=== PATIENT | female | born 1960 | race Caucasian/White ===

== ENCOUNTER → 2016-06-14 | Outpatient (CLI) | payer OTHER ==
[~2016-06-14] MED LIST: CARAFATE1 G1 PO; CITALOPRAM40 MG PO; COMBIVENT1 AR1 INH; FOSAMAX70 MG PO; Flovent 44 Mcg44 MCG INH; IBUPROFEN 30 M800 MG PO; MOTRIN800 MG PO; NATURE'S BLEND F1 MG PO; NORFLEX100 MG PO; ORPHENADRINE100 MG PO; OYSTER SHELL C500 M2 PO; PRILOSEC20 MG PO; PROTONIX40 MG PO; REQUIP1 MG PO; SERTRALINE25 MG PO; SINGULAIR10 MG PO; ULTRAM50 MG PO; VIBRAMYCIN100 MG PO; VITAMIN D50000 I3 PO; ZOFRAN ODT4 MG PO; ZYRTEC10 MG PO
== END | disposition home or self-care (01) ==
LOC: US 10:00
DX: L98.9 Disorder of the skin and subcutaneous tissue, unspecified (principal)

== ENCOUNTER → 2018-04-03 | Outpatient (CLI) | payer OTHER | END | disposition home or self-care (01) | LOC: MAMMO 14:28 | DX: Z12.31 Encounter for screening mammogram for malignant neoplasm of breast (principal) ==

== ENCOUNTER → 2018-06-21 | Outpatient (CLI) | payer OTHER | END | disposition home or self-care (01) | LOC: RAD 10:24 | DX: M25.511 Pain in right shoulder (principal) ==

== ENCOUNTER → 2018-09-26 | Outpatient (CLI) | payer OTHER ==
[~2018-09-26] MED LIST changes: +CLINDAMYCIN HC300 MG PO
--- NOTE | ~2018-09-26 | PF ---
[place], [place] PULMONARY FUNCTION TEST [id number] UNIT #: [id number] ROOM: DOCTOR: STEF ROJAS MD,KERRI BIRTHDATE: [birth year] DOS: 09/26/2018 ORDERED BY: The test was ordered by Dr. Lor Schulz. HISTORY: The patient is a 58-year-old female, height of 64 inches, weight 180 pounds. Diagnosis of COPD reported. The patient reported symptoms of shortness of breath with exertion, nonproductive cough, frequent wheezing. Active tobacco use 1 pack of cigarettes a day was also recorded. SPIROMETRY: The FVC 2.46 liters, 75% predicted value. FEV1 was 1.94 liters, 75% predicted value. Ratio of FEV1/FVC 79%. No changes of significant improvement noted post-bronchodilator. Flow volume loop was noted of obstructive airway pattern. LUNG VOLUMES: Thoracic gas volume recorded 100%, residual volume 130%, total lung capacity 101%. RV/TLC ratio 137%. The patient lung diffusion recorded 84%. IMPRESSION: Abnormal airway resistance and passive conductance noted. FINAL IMPRESSION: Current test was noted consistent with diagnosis of bronchial asthma. KERRI FINCH MD CM:PFREPORT:PULMONARY FUNCTION TEST [id number] KERRI ROJAS MD
== END | disposition home or self-care (01) ==
LOC: CP 11:58
DX: J44.9 Chronic obstructive pulmonary disease, unspecified (principal)

== ENCOUNTER → 2018-10-29 | Outpatient (CLI) | payer OTHER | END | disposition home or self-care (01) | LOC: MRI 08:35 | DX: M19.011 Primary osteoarthritis, right shoulder (principal); M75.91 Shoulder lesion, unspecified, right shoulder ==

== ENCOUNTER 2018-12-20 15:51 | Emergency (ER) | payer OTHER ==
[~2018-12-20] VITALS: Ht 162.5 cm; Wt 77.1 kg
[~2018-12-20 15:51] MED LIST changes: -CLINDAMYCIN HC300 MG PO
[2018-12-20 17:43] LABS: BASO # 0.1 10*3/uL (0.0-0.1); BASO % 0.5 % (0.0-1.0); EOS # 0.1 10*3/uL (0.0-0.4); EOS % 0.8 % (1.0-4.0); HEMATOCRIT 41.4 % (37.0-47.0); HEMOGLOBIN 13.5 g/dl (12.0-16.0); LYMPH # 2.2 10*3/uL (1.3-4.4); LYMPH % 15.8 % (27.0-41.0); MEAN CELL VOLUME 91.6 fl (81.0-99.0); MEAN CORPUSCULAR HGB 29.9 pg (27.0-31.0); MEAN CORPUSCULAR HGB CONC 32.6 g/dl (33.0-37.0); MEAN PLATELET VOLUME 10.2 fl (9.6-12.3); NEUT # 10.6 10*3/uL (2.3-7.9); NEUT % 75.5 % (47.0-73.0); PLATELET COUNT AUTOMATED 341 10*3/uL (130-400); RED BLOOD COUNT 4.52 10*6/uL (4.10-5.10); RED CELL DISTRI WIDTH 14.4 % (0-14.5)
[2018-12-20 17:59] LABS: ALBUMIN 3.9 gm/dl (3.1-4.5); ALKALINE PHOSPHATASE 85 U/L (45-117); BUN 12 mg/dl (7-24); CHLORIDE 106 mmol/L (98-107); CREATININE 0.91 mg/dL (0.55-1.02); POTASSIUM 3.7 mmol/L (3.5-5.1); SGOT/AST 18 IU/L (3-35); SGPT/ALT 19 U/L (12-78); SODIUM 139 mmol/L (136-145); TOTAL PROTEIN 8.3 gm/dL (6.4-8.2)
[2018-12-20 22:02] VITALS: BP 146/63
[2018-12-21] MEDS ORDERED: CLINDAMYCIN HC300 MG PO (10:09)
== END 2018-12-20 22:49 | disposition home or self-care (01) ==
LOC: ED 15:51
PROVIDERS: Emergency Medicine
DX: K11.20 Sialoadenitis, unspecified (principal); Z88.1 Allergy status to other antibiotic agents; Z88.8 Allergy status to other drugs, medicaments and biological substances; Z88.5 Allergy status to narcotic agent; Z79.899 Other long term (current) drug therapy

== ENCOUNTER 2019-04-26 19:46 | Emergency (ER) | payer OTHER ==
[~2019-04-26] VITALS: Ht 162.5 cm; Wt 74.8 kg
[2019-04-26 19:46] VITALS: BP 146/76
[~2019-04-26 19:46] MED LIST changes: +CLINDAMYCIN HC300 MG PO
== END 2019-04-26 21:54 | disposition home or self-care (01) ==
LOC: ED 19:46
DX: S61.210A Laceration without foreign body of right index finger without damage to nail, initial encounter (principal); J45.909 Unspecified asthma, uncomplicated; J44.9 Chronic obstructive pulmonary disease, unspecified; W45.8XXA Other foreign body or object entering through skin, initial encounter; F17.200 Nicotine dependence, unspecified, uncomplicated; Z88.1 Allergy status to other antibiotic agents; Z88.6 Allergy status to analgesic agent; Z88.8 Allergy status to other drugs, medicaments and biological substances; Z79.899 Other long term (current) drug therapy; Y93.89 Activity, other specified; Y92.89 Other specified places as the place of occurrence of the external cause; Y99.8 Other external cause status

== ENCOUNTER → 2020-04-15 | Outpatient (CLI) | payer OTHER | END | disposition home or self-care (01) | LOC: MAMMO 05:01 | PROVIDERS: ATTEND Family Medicine | DX: Z12.31 Encounter for screening mammogram for malignant neoplasm of breast (principal) ==

== ENCOUNTER 2021-02-13 13:21 | Emergency (ER) | payer OTHER ==
[~2021-02-13] VITALS: Ht 162.5 cm; Wt 74.8 kg
[2021-02-13 14:01] VITALS: BP 160/90
[2021-02-16] MEDS ORDERED: LANSOPRAZOLE30 MG PO (13:49)
[2021-02-18] MEDS ORDERED: HYDROCODONE-AC1 EAC1 PO (09:00)
== END 2021-02-13 19:01 | disposition home or self-care (01) ==
LOC: ED 13:21
DX: S52.592A Other fractures of lower end of left radius, initial encounter for closed fracture (principal); Z88.1 Allergy status to other antibiotic agents; Z88.8 Allergy status to other drugs, medicaments and biological substances; Z79.899 Other long term (current) drug therapy; W01.0XXA Fall on same level from slipping, tripping and stumbling without subsequent striking against object, initial encounter; Y93.89 Activity, other specified; Y92.89 Other specified places as the place of occurrence of the external cause; Y99.8 Other external cause status

== ENCOUNTER → 2021-02-18 | Day surgery (SDC) | payer OTHER ==
[2021-02-17 12:43] LABS: BUN 14 mg/dl (7-24); CHLORIDE 108 mmol/L (98-107); CREATININE 0.67 mg/dL (0.55-1.02); POTASSIUM 3.6 mmol/L (3.5-5.1); SODIUM 141 mmol/L (136-145)
[~2021-02-18] VITALS: Ht 162.5 cm; Wt 78.9 kg
[~2021-02-18] MED LIST changes: +HYDROCODONE-AC1 EAC1 PO; +LANSOPRAZOLE30 MG PO
[2021-02-18 07:03] VITALS: BP 151/70
[2021-02-18 09:10] VITALS: BP 154/74
[2021-02-18 09:25] VITALS: BP 126/57
[2021-02-18 09:36] VITALS: BP 108/54
[2021-02-18 09:55] VITALS: BP 112/58
[2021-02-18 10:10] VITALS: BP 113/50
== END | disposition home or self-care (01) ==
LOC: LAB 02-16 13:13 → EDSTATUS 02-16 13:22 → SDC 02:24
PROVIDERS: ATTEND Orthopaedic Surgery
DX: S52.572A Other intraarticular fracture of lower end of left radius, initial encounter for closed fracture (principal); K21.9 Gastro-esophageal reflux disease without esophagitis; J45.909 Unspecified asthma, uncomplicated; F17.210 Nicotine dependence, cigarettes, uncomplicated; X50.0XXA Overexertion from strenuous movement or load, initial encounter; X50.9XXA Other and unspecified overexertion or strenuous movements or postures, initial encounter; Y93.89 Activity, other specified; Y92.89 Other specified places as the place of occurrence of the external cause; Y99.8 Other external cause status; Z20.822 Contact with and (suspected) exposure to COVID-19

== ENCOUNTER → 2021-03-03 | Outpatient (CLI) | payer OTHER | END | disposition home or self-care (01) | LOC: ORTHO 08:58 | PROVIDERS: ATTEND Nurse Practitioner | DX: S52.612A Displaced fracture of left ulna styloid process, initial encounter for closed fracture (principal); X58.XXXA Exposure to other specified factors, initial encounter ==

== ENCOUNTER → 2021-03-24 | Outpatient (CLI) | payer OTHER | END | disposition home or self-care (01) | LOC: ORTHO 02:29 | PROVIDERS: ATTEND Orthopaedic Surgery | DX: S52.612A Displaced fracture of left ulna styloid process, initial encounter for closed fracture (principal); M79.89 Other specified soft tissue disorders; X58.XXXA Exposure to other specified factors, initial encounter; Y93.89 Activity, other specified; Y92.89 Other specified places as the place of occurrence of the external cause; Y99.8 Other external cause status ==

== ENCOUNTER → 2021-04-21 | Outpatient (CLI) | payer OTHER | END | disposition home or self-care (01) | LOC: ORTHO 10:42 | PROVIDERS: ATTEND Orthopaedic Surgery | DX: S52.572D Other intraarticular fracture of lower end of left radius, subsequent encounter for closed fracture with routine healing (principal); T81.41XA Infection following a procedure, superficial incisional surgical site, initial encounter; X58.XXXD Exposure to other specified factors, subsequent encounter ==

== ENCOUNTER → 2021-05-05 | Outpatient (CLI) | payer OTHER | END | disposition home or self-care (01) | LOC: ORTHO 00:15 | PROVIDERS: ATTEND Orthopaedic Surgery | DX: S52.612D Displaced fracture of left ulna styloid process, subsequent encounter for closed fracture with routine healing (principal); S52.572D Other intraarticular fracture of lower end of left radius, subsequent encounter for closed fracture with routine healing; X58.XXXD Exposure to other specified factors, subsequent encounter ==

== ENCOUNTER → 2022-11-14 | Outpatient (CLI) | payer OTHER | END | disposition home or self-care (01) | LOC: MAMMO 01:08 | PROVIDERS: ATTEND Family Medicine | DX: Z12.31 Encounter for screening mammogram for malignant neoplasm of breast (principal); N63.11 Unspecified lump in the right breast, upper outer quadrant; N63.21 Unspecified lump in the left breast, upper outer quadrant; M85.852 Other specified disorders of bone density and structure, left thigh ==

== ENCOUNTER → 2024-09-23 | Outpatient (CLI) | payer OTHER | END | disposition home or self-care (01) | LOC: MAMMO 02:10 | PROVIDERS: ATTEND Family Medicine | DX: Z12.31 Encounter for screening mammogram for malignant neoplasm of breast (principal); Z12.2 Encounter for screening for malignant neoplasm of respiratory organs; F17.200 Nicotine dependence, unspecified, uncomplicated; F17.210 Nicotine dependence, cigarettes, uncomplicated; N28.89 Other specified disorders of kidney and ureter; R91.1 Solitary pulmonary nodule; N64.89 Other specified disorders of breast; R92.323 Mammographic fibroglandular density, bilateral breasts ==

== ENCOUNTER 2025-02-17 18:13 | Emergency (ER) | payer OTHER ==
[~2025-02-17] VITALS: Ht 162.5 cm; Wt 84.4 kg
[2025-02-17] MEDS ORDERED: Amiodarone Hydrochloride 900 MG in DEXTROSE 5% 500 ML IV SCH (18:30)
[2025-02-17 18:52] LABS: ABG O2 SATURATION 98.7 % (94.0-98.0); ARTERIAL BLOOD GAS PO2 172.0 mmHg (83.0-108.0)
[2025-02-17 18:58] LABS: ABG BASE EXCESS -3.2 mmol/L (-2.0-3.0); ARTERIAL BLOOD GAS PH 6.965 (7.350-7.450)
[2025-02-17 19:08] LABS: MEAN CELL VOLUME 92.5 fl (81.0-99.0); MEAN CORPUSCULAR HGB 26.0 pg (27.0-31.0); MEAN PLATELET VOLUME 9.2 fl (9.6-12.3); NUCLEATED RED BLOOD CELL 0.1 10*3/uL (0.0-0.0); NUCLEATED RED BLOOD CELL 1.2 % (0.0-0.0); PLATELET COUNT AUTOMATED 282 10*3/uL (130-400); RED CELL DISTRI WIDTH 22.1 % (0-14.5)
[2025-02-17] MEDS ORDERED: SODIUM CHLORIDE 0.9% 1,000 ML IV ONE (19:10)
[2025-02-17 19:24] LABS: MANUAL DIFF REFLEX YES
[2025-02-17 19:29] LABS: BUN 16 mg/dl (9-23); CPK 167 U/L (34-171)
[2025-02-17 19:41] LABS: PLATELET SUFFICIENCY NORMAL (NORMAL)
[2025-02-18 05:35] LABS: ABG O2 SATURATION 97.9 % (94.0-98.0); ARTERIAL BLOOD GAS PH 7.414 (7.350-7.450); ARTERIAL BLOOD GAS PO2 100.5 mmHg (83.0-108.0)
[2025-02-18 05:36] LABS: ABG BASE EXCESS 7.0 mmol/L (-2.0-3.0)
[2025-02-18 07:27] VITALS: BP 126/82
[2025-02-20] MEDS ORDERED: Amiodarone Hydrochloride 150 MG/3 ML VIAL IV ONE (10:12)
[2025-02-20] MEDS ORDERED: EPINEPHrine Hydrochloride 1 MG/10 ML SYR IV ONE (10:12)
[2025-02-20] MEDS ORDERED: SODIUM BICARBONATE 50 MEQ/50 ML SYR IV ONE (10:12)
== END 2025-02-18 07:49 | disposition short-term general hospital (02) ==
LOC: ED 18:13
PROVIDERS: Emergency Medicine; Internal Medicine
DX: I46.9 Cardiac arrest, cause unspecified (principal); J44.9 Chronic obstructive pulmonary disease, unspecified; R79.89 Other specified abnormal findings of blood chemistry; E87.1 Hypo-osmolality and hyponatremia; E87.20 Acidosis, unspecified; D64.9 Anemia, unspecified; F17.200 Nicotine dependence, unspecified, uncomplicated; Z88.1 Allergy status to other antibiotic agents; Z88.8 Allergy status to other drugs, medicaments and biological substances; Z88.5 Allergy status to narcotic agent; Z79.899 Other long term (current) drug therapy; Z98.890 Other specified postprocedural states